=== PATIENT | male | born 1955 | race Asian ===

== ENCOUNTER 2017-05-02 02:35 | Emergency (ER) | payer OTHER ==
[~2017-05-02 02:35] MED LIST: ALPRAZOLAM0.25 M1 PO; ATORVASTATIN CA40 M1 PO; LOSARTAN POTASS25 M1 PO
[2017-05-02 03:25] VITALS: BP 135/78
== END 2017-05-02 03:25 | disposition home or self-care (01) ==
LOC: ED 02:35
DX: H10.13 Acute atopic conjunctivitis, bilateral (principal); H11.33 Conjunctival hemorrhage, bilateral; I10 Essential (primary) hypertension; E78.5 Hyperlipidemia, unspecified
CPT/HCPCS: J7050; V2632

== ENCOUNTER 2018-07-04 19:13 | Emergency (ER) | payer OTHER ==
[~2018-07-04] VITALS: Ht 175.3 cm; Wt 79.8 kg
[2018-07-04 19:25] VITALS: Ht 175.3 cm; Wt 79.8 kg
[2018-07-04 22:10] VITALS: BP 128/76
== END 2018-07-04 22:10 | disposition home or self-care (01) ==
LOC: ED 19:13
DX: S06.0X1A Concussion with loss of consciousness of 30 minutes or less, initial encounter (principal); S16.1XXA Strain of muscle, fascia and tendon at neck level, initial encounter; I10 Essential (primary) hypertension; E78.00 Pure hypercholesterolemia, unspecified; F41.9 Anxiety disorder, unspecified; Z88.6 Allergy status to analgesic agent; V49.88XA Car occupant (driver) (passenger) injured in other specified transport accidents, initial encounter; Y93.I9 Activity, other involving external motion; Y92.413 State road as the place of occurrence of the external cause; Y99.8 Other external cause status